=== PATIENT | male | born 1975 | race Caucasian/White ===

== ENCOUNTER → 2021-11-29 09:32 | Outpatient (CLI) | payer OTHER, SELFPAY ==
--- NOTE | ~2021-11-29 | XR_ITS ---
EXAMINATION:XR_CERV2-3V_CR DATE: 11/29/2021 10:33 INDICATION: Neck pain TECHNIQUE: AP, lateral, lateral swimmers and odontoid views of the cervical spine are provided. COMPARISON: None FINDINGS: Alignment is normal. The odontoid is intact. No fracture is identified. Vertebral body heig hts and disk spaces are normal. Prevertebral soft tissues are normal. IMPRESSION: 1. No acute osseous abnormality. Reviewed, dictated and finalized at location B.
--- NOTE | ~2021-11-29 | XR_ITS ---
EXAMINATION: XR lumbar spine 2-3V DATE: 11/29/2021 10:33 INDICATION: Low back pain TECHNIQUE: Anteroposterior and lateral views of the lumbar spine, and cone-down lateral view of the l umbosacral junction were obtained. COMPARISON: None. FINDINGS: There is no fracture, dislocation, or subluxation. There is mild loss of intervertebral dis c space height at L5-S1. The vertebral body heights are maintained. There is mild facet osteoarthriti s of the lower lumbar spine. IMPRESSION: 1. Mild lumbar spondylosis without acute findings. Reviewed, dictated and finalized at location B.
--- NOTE | ~2021-11-29 | XR_ITS ---
EXAMINATION: XR thoracic spine 2V DATE: 11/29/2021 10:33 INDICATION: Thoracic back pain TECHNIQUE: AP, lateral and lateral swimmer's views of the thoracic spine were obtained. COMPARISON: None. FINDINGS: There are 13 degrees of thoracic dextroscoliosis. Bone alignment is normal. There is no fra cture. The vertebral body heights and intervertebral disc spaces are maintained. The visualized porti ons of the thorax are unremarkable. IMPRESSION: 1. Thoracic dextroscoliosis without acute osseous abnormality. Reviewed, dictated and finalized at location B.
== END ==
PROVIDERS: PCP Internal Medicine; Visit Provider Chiropractor
DX: M54.50 Low back pain, unspecified (principal); M54.2 Cervicalgia; M47.816 Spondylosis without myelopathy or radiculopathy, lumbar region; M41.84 Other forms of scoliosis, thoracic region
CPT/HCPCS: 72040; 72070; 72100

== ENCOUNTER 2024-09-12 14:02 | Outpatient (CLI) | payer OTHER, SELFPAY ==
--- NOTE | ~2024-09-12 | CT_ITS ---
EXAMINATION: CT injection muscle 1-2 DATE: 09/12/2024 14:53 INDICATION: Strain and muscle and tendon of left shoulder. TECHNIQUE: The procedure including the risks, benefits, and alternatives was discussed with the patie nt. Risks discussed included bleeding and infection. The patient verbalized understanding of the risk s and agreed to proceed. The skin overlying the left shoulder was prepped and draped in usual steril e fashion. Anesthetic was administered with 1% lidocaine subcutaneously. A 22-gauge needle was inser marcie into the fluid collection anterior to the left subscapularis muscle under CT guidance. 2 mL pale yellow fluid was aspirated and discarded. Injectate consisting of 1 mL Omnipaque 350, 2 mL 1% lidocai ne, and 1 mL 80 mg/mL Depo-Medrol was injected. The dose-length product was 136.04 mGy-cm. The needle was removed and the entry site was cleaned and dressed. There were no immediate complications. FINDINGS: CT images demonstrate the outer needle tip in the fluid collection anterior to left subscap ularis muscle, likely the subcoracoid bursa. IMPRESSION: 1. CT-guided needle aspiration of the left subcoracoid bursa and injection of local anesthetic and s teroid. Reviewed, dictated and finalized at location A. ORT STAFF IMPRESSION: 1. CT-guided needle aspiration of the left subcoracoid bursa and injection of local anesthetic and steroid.
--- OUTSIDE RECORDS SUMMARY | 2024-09-12 16:40 | XMS_ITS | Clinical Summary ---
Author Organization [facility] Building A Address [address] [place] [address] Care Team Providers Care Heeler Name Role Phone Foster Mena MD Primary Care Provider Allergies No known active allergies Medications buPROPion XL (WELLBUTRIN XL) 150 mg 24 hr tablet Take 1 tablet (150 mg total) by mouth every morning 90 tablet 3 3 Active Additional Information Patient not taking.Reported on 03/09/2024 fexofenadine-pse udoephedrine (ABBE-D) 60-120 mg per 12 hr tablet Take 1 tablet by mouth 2 (two) times a day For drainage 14 tablet 3 3 Active Additional Information Patient not taking.Reported on 03/09/2024 celecoxib (CeleBREX) 200 mg capsule Take 1 capsule (200 mg total) by mouth daily For back pain 30 capsule 3 3 Active Additional Information Patient not taking.Reported on 03/09/2024 clobetasoL (TEMOVATE) 0.05 % ointment Apply topically 2 (two) times a day To rash 30 g 3 3 Active Additional Information Patient not taking.Reported on 03/09/2024 linaCLOtide (LINZESS) 290 mcg capsuleIndicatio ns:chronic idiopathic constipation Take 1 capsule (290 mcg total) by mouth daily 30 capsule 11 4 Active Additional Information Patient not taking.Reported on 03/09/2024 atorvastatin (LIPITOR) 20 mg tablet Take 1 tablet (20 mg total) by mouth daily To lower bad cholesterol 90 tablet 3 4 12/31/19 25 Active varenicline tartrate (CHANTIX GLORIA) 0.5 mg (11)- 1 mg (42) tablet USE DIRECTED FOLLOW PACKAGE DIRECTIONS, TRY TO QUIT SMOKING AFTER 1 WEEK 53 tablet 1 4 Active Active Problems Problem Noted Date Diagnosed Date Chronic midline low back pain without sciatica 0 09/26/2022 DDD (degenerative disc disease), lumbar 09/26/19 23 Lumbar facet arthropathy 09/25/2022 Encounter for screening colonoscopy 01/07/2022 Overview (01/07/2022): Added automatically from request for surgery [id number] Left sided sciatica 2021 Thoracogenic scoliosis 2021 History of 2019 novel coronavirus disease (COVID -19) 2021 Psoriasis 12/10/2013 Overview (10/31/2016): OTHER PSORIASIS Elevated LDL cholesterol level Tobacco abuse Resolved Problems Problem Noted Date Diagnosed Date Resolved Date Acute URI 04/26/2019 04/26/2019 Assessment & Plan (04/26/2019 3:03 PM CDT): Acute viral URI VS allergic etiology given presentation & rapid negative strep. Recommending daily antihistamine and Flonase, supportive measures OTC to assist with ST until medications effective. Throat culture obtained with further recommendations for antibiotics if indicated. Encounters Date Type Department Care Team Description 07/01/2024 12:31 PM SEED CLEANER Anesthesia Event [facility] [address] [place] [address] [phone] Kenton Savage MD McVey, Lynexis Parisann, CRNA 07/01/2024 12:30 PM SEED CLEANER - 07/01/2024 1:00 PM SEED CLEANER Surgery [facility] [address] [place] [address] [phone] Jefferson Marshall MD EGD w/Davis 07/01/2024 11:30 AM SEED CLEANER - 07/01/2024 1:37 PM SEED CLEANER Hospital Encounter [facility] [address] [place] [phone] Jefferson Marshall MD Discharge Disposition: Discharge to home or self care from Last 3 Months Immunizations Immunization Administration Dates Next Due Influenza, Quadrivalent, Spl it, Intramuscular 05/05/2016 Influenza, Quadrivalent, Spl it, Preservative Free, Intramuscular 06/06/2020 Influenza, Unspecified 10/25/2023(Deferr ed: Patient Refused),08/19/2022(Deferred: Patient Refused),04/26/2021(Deferred: Patient Refused),04/26/2021(Deferred: Patient Refused),04/26/2019(Deferred: Patient Refused),04/26/2019(Deferred: Patient Refused - not available),04/26/2018(Deferred: Patient Refused) Moderna SARS-CoV-2 Monovalen t Vaccination (12+ YRS) 10/30/2020 Tdap 06/06/2020 Medical History Medical History Date Comments Hx Other Medical 02/06/2011 vasectomy Hypercholesteremia Hiatal hernia Gastric reflux Family History Medical History Relation Name Comments Arthritis Father Heart disease Father Mental illness Father Arthritis Mother Heart disease Mother Relation Name Status Comments Father Mother Social History Tobacco Use Types Packs/Day Years Used Date Smoking Tobacco: Former Cigarettes Q uit: 04/05/2019 Smokeless Tobacco: Never Tobacco Cessation:Ready to Q uit: Not Asked; Counseling Given: Not Answered Alcohol Use Standard Drinks/Week Comments No 0 (1 standard drink = 0.6 oz pur e alcohol) AUDIT-C Answer Date Recorded Q1: How often do you have a drink containing alc ohol? 2-3 times a week 07/01/2024 Q2: How many drinks containi ng alcohol do you have on a typical day when you are drinking? 1 or 2 07/01/2024 Q3: How often do you have si x or more drinks on one occasion? Monthly 07/01/2024 PHQ-2 Answer Date Recorded PHQ-2 Total Score (If total score is 3 or more points, staff should administer the PHQ-9) 0 09/26/2022 Personal Safety Answer Date Recorded Have you ever been in or are you currently in a harmful physical or emotional relationship or is someone making you feel afraid or unsafe? Denies 07/01/2024 Sex and Gender Information Value Date Recorded Sex Assigned at Not on file Legal Sex Male 11:54 PM SEED CLEANER Gender Identity Not on file Sexual Orientation Not on file Obstetrics History Last Filed Vital Signs Vital Sign Reading Time Taken Comments Blood Pressure 110/78 07/01/2024 1:30 PM SEED CLEANER Pulse 59 07/01/2024 1:30 PM SEED CLEANER Temperature 36.2 C (97.1 F) 07/01/2024 11:59 AM SEED CLEANER Respiratory Rate 20 07/01/2024 1:30 PM SEED CLEANER Oxygen Saturation 96% 07/01/2024 1:30 PM SEED CLEANER Inhaled Oxygen Concentration - - Weight 79.4 kg (175 lb) 07/01/2024 11:59 AM SEED CLEANER Height 170.2 cm (5' 7 ) 07/01/2024 11:59 AM SEED CLEANER Body Mass Index 27.41 07/01/2024 11:59 AM SEED CLEANER Plan of Treatment Health Maintenance Due Date Last Done Comments Hepatitis C Screening 1975 Hepatitis B Screening 1992 Depression Screening 09/27/2023 09/26/2022, 09/26/2022, 08/19/2022, Additional history exists Covid-19 Vaccine ( season) 2024 11/27/2020, 10/30/2020 Influenza Vaccine (#1) 2024 06/06/2020, 2015 Regular Well Visit/Exam 18-64 12/30/2024 12/31/2023, 08/19/2022, 2021, Additional history exists DTaP/Tdap/Td Vaccine (2 - Td or Tdap) 06/06/2030 06/06/2020 Colon Cancer Screening-Colonoscopy 03/04/2032 03/04/2022 Pneumococcal vaccine <65 Aged Out No longer eligible based on patient's age to complete this topic Procedures Procedure Name Priority Date/Time Associated Diagnosis Comments EGD 07/10/2024 12:20 PM SEED CLEANER ESOPHAGOGASTRODUODENOSCOPY 07/01 12:31 PM SEED CLEANER Hiatal hernia COLONOSCOPY 03/04/2022 7:10 AM CDT from Last 3 Months or Most Recently Relevant to Health Maintenance Results * EGD (07/10/2024 12:20 PM SEED CLEANER) Anatomical Region Laterality Modality Other Narrative Procedure Note Jefferson Marshall MD - 07/01/2024 12:20 PM CST ENDOSCOPY LAB Patient Name: Jag Edwards Procedure Date: 07/01/2024 12:20 PM Admit Type: Outpatient Room: [facility] Date of : 1975 Instrument Name: [id number] Gender: Male Note Status: Finalized Procedure: Upper GI endoscopy Indications: Epigastric abdominal pain, Suspected esophagealreflux Providers: Jose Miguel Marshall M.D. Referring MD: Foster Mena M.D., Rodrigo Antonio M.D. Medicines: Monitored Anesthesia Care Complications: No immediate complications. Estimated Blood Loss: Estimated blood loss was minimal. Procedure: Pre-Anesthesia Assessment: - Immediately prior to administration ofmedications, the patient was re-assessed for adequacy to receive sedatives. The benefits, risks, and alternatives to theprocedure and sedation were discussed and informed consentwas obtained. The scope was passed under direct vision. The Endoscope was introduced through the mouth, and advanced to the second part of duodenum. The upperGI endoscopy was accomplished without difficulty. The patient tolerated the procedure well. Findings: Soft LA Grade B (one or more mucosal breaks greater than 5 mm, not extending between the tops of two mucosal folds) esophagitis with no bleeding was found 35 to 36 cm from the incisors. The DAVIS capsulewith delivery system was introduced through the mouth and advanced intothe esophagus, such that the DAVIS pH capsule was positioned 32 cm fromthe incisors, which was 6 cm proximal to the GE junction. Suction was applied to the well of the DAVIS pH capsule to suck in the adjacent mucosa of the esophagus using the external vacuum pump set at aminimum vacuum pressure of 550 mmHg for 30 seconds. The DAVIS pH capsule was then deployed by depressing the plunger on top of the handle toadvance the locking pin into the mucosa, thereby attaching the capsule to the esophagus. The plunger was then rotated a quarter turn clockwise to release the capsule from the delivery system. The delivery system was then withdrawn. Endoscopy was utilized for probe placement and diagnostic evaluation. The scope was reinserted to evaluate placementof the DAVIS capsule. Visualization showed the DAVIS capsule to be in an appropriate position. A 2 cm hiatal hernia was present. The stomach was normal. The examined duodenum was normal. Impression: - LA Grade B reflux esophagitis with no bleeding. 2cm hiatal hernia. - Normal stomach. - Normal examined duodenum. - The DAVIS pH capsule was positioned 32 cm fromthe incisors, which was 6 cm proximal to the GEjunction. - No specimens collected. Recommendation: - Await results of Davis pH testing. Acidsuppression can be resumed after the recording period iscomplete. Electronically signed by Jose Miguel aMrshall MD JoseM iguel Marshall M.D. 07/01/2024 12:46:14 PM Number of Addenda: 0 Note Initiated On: 07/01/2024 12:20 PM Scope In: Scope Out: us Jefferson Marshall MD ENDOSCOPY PROCEDURES Edited Result - Final * COLONOSCOPY (03/04/2022 7:10 AM CDT) Anatomical Region Laterality Modality Other Narrative Procedure Note Gokul Parson MD - 03/04/2022 7:10 AM CDT [facility] Patient Name: Jag Edwards Procedure Date: 03/04/2022 7:10 AM Date of : 1975 Admit Type: Outpatient Age: 46 Gender: Male Attending MD: Gokul Parson M.D. Room: [facility] ENDOSCOPY ROOM 2 Note Status: Finalized Patient Profile: Refer to note in patient chart for documentation of history and physical. Procedure: Colonoscopy Indications: Screening for colorectal malignant neoplasm, Thisis the patient's first colonoscopy Referring MD: Foster Mena M.D. Providers: Gokul Parson M.D. Impression: - Hemorrhoids found on perianal exam. - The entire examined colon is normal. - No specimens collected. Recommendation: - Discharge patient to home. - Resume previous diet. - Continue present medications. - Repeat colonoscopy in 10 years for screening purposes. - Return to primary care physician as previously scheduled. Medicines: Propofol per Anesthesia Complications: No immediate complications. Estimated Blood Loss: Estimated blood loss: none. Procedure: Pre-Anesthesia Assessment: - This assessment was completed [Time ofAssessment] prior to the administration of sedation. The benefits, risks and alternatives of theprocedure and sedation were discussed and informed consentwas obtained. All questions were answered. Please referto the signed informed consent document in the medical record. The bowel preparation used was Miralax via single dose instruction. The bowel preparation used was bisacodyl tablets via single dose instruction.The scope was passed under direct vision. TheColonoscope [id number] was introduced through the anus and advanced to the the cecum, identified by appendiceal orifice and ileocecal valve. The colonoscopy was performed without difficulty. The patient tolerated the procedure well. The qualityof the bowel preparation was excellent. The ileocecal valve, appendiceal orifice, and rectum were photographed. Findings: Hemorrhoids were found on perianal exam. The colon (entire examined portion) appeared normal. Electronically signed by Gokul Parson M.D. Gokul Parson M.D. 03/04/2022 8:15:47 AM Number of Addenda: 0 Note Initiated On: 03/04/2022 7:10 AM Procedure Code(s): --- Professional --- G0121, Colorectal cancer screening; colonoscopy on individual not meeting criteria for high risk Diagnosis Code(s): --- Professional --- K64.9, Unspecified hemorrhoids Z12.11, Encounter for screening for malignant neoplasm of colon CPT copyright 2020 [employer]. All rights reserved. The codes documented in this report are preliminary and upon accounting manager assistant controller reviewmay be revised to meet current compliance requirements. Recognized by the [employer] for promoting quality in endoscopy us Gokul Parson MD ENDOSCOPY PROCEDURES Final Re sult from Last 3 Months or Most Recently Relevant to Health Maintenance Insurance [employer] IBEW CIGNA OPEN ACCESS CIGNA Advance Directives For more information, please contact: [phone] * Full Code (Latest Code Status on File) Date Activated Date Inactivated Comments 07/01/2024 11:46 AM 07/01/2024 5:37 PM * Full Code Date Activated Date Inactivated Comments 03/04/2022 7:05 AM 03/04/2022 1:05 PM * Full Code Date Activated Date Inactivated Comments 03/04/2022 7:05 AM 03/04/2022 7:05 AM Care Teams Heeler Relationship Specialty Start Date End Date Foster Mena MD PCP - General 10/24/16
--- OUTSIDE RECORDS SUMMARY | 2024-09-12 16:40 | XMS_ITS | Data Portability ---
Author Organization [facility], Medical Address [address] [place] [address] Care Team Providers Care Numerical Control Machine Machinist Name Role Phone GIACOMO CHAND Primary Care Provider [phone] Assessment Encounter Date Assessment Date Assessment LastModified by Organization Details LastModified Time 11/24/2018 11/24/2018 1. abdominal bloating - rec nutrition consult -ELIMINATION DIET - rec [facility] WELLNESS probiotic supplement 2. elevated cholesterol on prior labs - discussed [facility] 3 elevated a1c- check labs including insulin and a1c- disucssed [facility] 4. chronic upper airway congestion - evaluate after elimination diet 5. vitaimin d def on prior labs -24.1 -=start replacement - recheck fu labs at next fu 6. discussed importance of smoking cessation 7 discussed adding stretching program to his exercise routine 8. disucssed dementia prevention protocols -given family history 9. discussed eye check -routine 10. vaccination and general preventive care protocols Time in:15 Time out:1045 TOTAL TIME SPENT WITH PATIENT: *90minutes I spent greater than 90 minutes discussing history, impressions, and plan: including time counseling on stress reduction, exercise, diet, lifestyle modifications, and a plan of action to help eliminate the underlying conditions leading to illness and reach their well-being goals as outlined in my assessment, plan, and instructions. [email or web address] Not available 12/13/2018 12:24:15 Plan of Treatment Reminders Order Date Submit Date Provider Last Modified By Organization Details Last Modified Time Details Appointments None recorded. Lab vitamin D, 25-hydrox y, total, serum [facility], [address] [facility], [place], [address], 9 15:36:29 HbA1c (hemoglob in A1c), blood 01/2 019 [facility], [address] [place], [address], 9 11:54:41 CMP, serum or plasma 019 [facility], [address] [place], [address], 9 11:54:43 insulin, serum 019 [facility], [address] [facility], [place], [address], 9 11:54:39 lipid panel, serum 019 [facility], [address] [facility], [place], [address], 9 11:54:40 Referral None recorded. Procedures None recorded. Surgeries None recorded. Imaging None recorded. Medication Orders None recorded. Patient Targets Encounter Date Encounter Id Patient Goals Patient Target Last Modified By Organization Details Last Modified Time 1.reduce congestion2. reduce bloating3. work on elevated cholesterol4. 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 probiotic - discussed PALM vs Gi wellness -total digestive wellnesss 3. vit d replacement -5000 bid for 1 month then qd 4. labs - ?[facility] -please discuss with patient -?cost --vs [facility] 5. RTC 4-6 weeks. [email or web address] Not available 11/24/2018 11:23:48 Reason for Referral None Reported. Results Created Date Observation Date Name Description Value Unit Range Abnormal Flag Note LastModifiedBy Organization Detail LastModifiedTime Result Notes None recorded. Problems Name Problem SNOMED Code Status Onset Date Resolution Date Notes Provider Name and Address Organization Details Recorded Time Serum cholesterol outside reference range 5345130270221 4 Active 2018 LUC Campbell - [employer] 9 12:56:11 Impaired glucose tolerance 0995193 Active 2018 Samuel Hiro jennifer [facility] 9 12:56:21 Problem Notes None recorded. Medical Equipment None Reported. Allergies No known drug allergies Medications Not known to be on any medication Vitals Date Recorded Body weight Body temperature Heart rate Oxygen saturation Oxygen saturation in Arterial blood by Pulse oximetry Body mass index (BMI) Body height Systolic blood pressure Diastolic blood pressure Provider Name and Address Organization Details Last Updated DateTime 9 11666.2 3 g 98.2 [degF] 59 /min 98 % 98 % 26.2 kg/m2 173.99 cm 121 mm[Hg] 76 mm[Hg] Amairani Bowser [facility] 9 09:39:50 Social History Question Answer Notes LastModified by Organizat ion Details LastModified Time Tobacco Smoking Status Former Smoker Manda rodriguez [facility] 11/16/2018 11:02:59 What Is Your Level Of Alcohol Consumption? Moderate [email or web address] Information not available 11/16/2018 Animal Exposure? Yes [email or web address] Informa tion not available 11/16/2018 How Much Tobacco Do You Chew? 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 No [email or web address] Information no t available 11/16/2018 Hobbies/Activitie s Wood Work, Hiking, Golf nwcriuxzb66 Information not available 11/16/2018 International Travel [facility], [facility] [place] [email or web address] Information not available 11/16/2018 Where Do You Live? House [email or web address] Information not available 11/16/2018 With Whom Do You Live And Children Information not available 11/16/2018 Individuals Around You Are Supportive Information not available 11/16/2018 Week Days I Spend Mostly Working Within 60 Min From Home [email or web address] Information not available 11/16/2018 Weekends I Spend Mostly Working From Home [email or web address] Information not available 11/16/2018 Time Lost From Work This Year Due To Illness 0-2 Days [email or web address] Information not available 11/16/2018 Relaxation Methods Sauna gjnlybzsd89 Information not available 11/16/2018 Living Adjustments Due To Health Trying To Eat A Better Diet, Exercise, And Saun xtqodxfqz81 Information not available 11/16/2018 Major Loses No bufujotml79 Information not available 11/16/2018 Judaism Not At All bcfuxeksp27 Information n ot available 11/16/2018 Spirituality Not At All dfaflwvxf75 Information not available 11/16/2018 Feel Safe Growing Up Yes [email or web address] Information not available 11/16/2018 Abusive Relationship In Past No lpshlfokh86 Information not available 11/16/2018 Alcoholism Or Substance Abuse In Childhood Home No [email or web address] Information no t available 11/16/2018 Alcoholism Or Substance Abuse In Current Home Or Relationship No istybknpt86 Information not available 11/16/2018 Feel Safe In Current Home Yes [email or web address] Information not available 11/16/2018 Feel Safe, Respected, And Valued In Current Relationship Yes [email or web address] Information not available 11/16/2018 Violent Or Trauma Experiences No avcwoqjpa63 Information not available 11/16/2018 Safety Discussion In Private No Information not available 11/16/2018 Alcohol Intake Quantity 1-3 Drinks Per Week xqrgocxxh84 Information not available 11/16/2018 Alcohol Intake Variety Beer [email or web address] Information not available 11/16/2018 Do You Think You Have A Problem With Alcohol No [email or web address] Information not available 11/16/2018 Does Anyone In Your Life Think You Have A Problem With Alcohol No ekdmncdjw80 Information not available 11/16/2018 Recreational Drugs No [email or web address] Information not available 11/16/2018 Current Employment Status Working Full-time [email or web address] Information not available 11/16/2018 Stress Level (10 Most, 1 Least) 7 ntnhuqcoh58 Information not available 11/16/2018 Unhealthy Stress Is Present No mhihvmwjg26 Information not available 11/16/2018 Ways To Release Stress Take A Break qfnkogksp93 Information not available 11/16/2018 Sources Of Stress Are Work And Running Kids To Activities atuqkcqlk64 Information not available 11/16/2018 Exposures Cigarette Smoke, Auto Exhaust, Heavy Metals, Welding, Extreme Temperatures, Heights And Depths pjjjqinum90 Information not available 11/16/2018 What Was The Date Of Your Most Recent Tobacco Screening? 11/24/2018 Information not available 02/17/2019 How Many Children Do You Have? 2 elgcrxavp35 Information not available 11/16/2018 Do You Have Any Siblings? 2 Sisters And 1 Brother wdnikevpi48 Information not available 11/16/2018 Are There Any Smokers In Your House? No ozjgbdjsx52 Information not available 11/16/2018 How Much Tobacco Do You Smoke? No koqrzoywx77 Information not available 11/16/2018 How Many Years Have You Smoked Tobacco? 30 ivwupigls68 Information not available 11/16/2018 Sex: Unknown Functional Status None recorded. Mental Status None recorded. Family History Relationship Description Onset Age of this Age Resolved Age Notes LastModified by Organization Details LastModified Time Maternal Grandmother Dementia [email or web address] Not available 0 11/16/2018 10:57:50 Maternal Grandfather Dementia [email or web address] Not available 0 11/16/2018 10:57:50 Maternal Grandfather Depressive disorder [email or web address] Not available 10/26 10:58:12 Maternal Grandfather Heart disease [email or web address] Not available 10/26 10:58:32 Paternal Grandfather Dementia Not available 0 11/16/2018 10:57:50 Mother Heart disease Not available 10/26 10:58:42 Mother Obesity [email or web address] Not availab le 11/16/2018 10:59:13 Brother Mental disorder [email or web address] Not available 10/26 10:59:00 Brother Substance abuse auwlxghpm24 Not available 10/26 10:59:23 Sister Mental disorder [email or web address] Not available 10/26 10:59:00 Medical History Condition Response Coronary Artery Disease N Other N Gout N High Blood Pressure Y Kidney Stones N Hyperthyroidism N MRSA N Gerd/Reflux N Chronic Sinusitis N INJURIES N Braces N Depression N Congenital Heart Disease N Pneumonia N BLOOD/INFLAMMATORY/IMMUNE N Complex Regional Pain Syndrome N Headache/Migraine N Sinusitis N RESPIRATORY N Gall stones N Bulimia N Obesity N Arthritis N Infertility N Polycystic Ovarian Syndrome N Congenital Disorder N Stroke N Crohn's Disease N Neck Injury N HIV/AIDS N CARDIOVASCULAR N Skin Cancer N Mood disorder N Fibromyalgia N Irritable Bowel Syndrome N Kidney Disease N Concussion/Traumatic Brain Injury N Inflammatory bowel disease N Chronic Fatigue Syndrome N Anxiety N Hospitalizations N Irregular HR/Arrhythmia N Heart Attack/KS N Herpes N GASTROINTESTINAL N Acne N PTSD N Celiac Disease N Constipation N Bleeding Disorder N Hepatitis/Liver Disease N Broken bone N Cerebral Palsy N Tuberculosis N METABOLIC/ENDOCRINE N Asthma N Dental Visits 2x/year Y Silver/Mercury Amalgum fillings N Chronic Ear Infections N Bipolar disorder N Oral Steroids as Adult N MENTAL HEALTH N URINARY/REPRODUCTIVE N Hypothyroidism N Anorexia N Developmental delay N Pacemaker N DERMATOLOGIC N Panic attacks N Gastic or peptic ulcers N Food intolerance N Yeast infections N Prostate problem N Mononucleosis N Chronic pain Y Hypoglycemia N Severe infections N ORAL HEALTH N Metabolic syndrome N Back Injury N High Cholesterol Y Antibiotic Use as Teen N CANCER N Autism/Autism Spectrum Disorder (ASD) N Type 1 Diabetes N Autoimmune Disease N Allergies/Hayfever N Recurrent Fractures N Head Injury N Osteoarthritis N Rheumatic fever N NEUROLOGIC N Parkinson's Disease N Oral Steroids as Teen N ADD/ADHD N Anemia N Back Pain Y Multiple Sclerosis N Type 2 Diabetes N Bronchitis/Emphysema N Dentures N Retainer N Cardiomyopathy N Seizures/Epilepsy N Heart Murmur N Congestive Heart Failure (CHF) N Valvular Heart Disease N Cancer and treatments N MUSCULOSKELETAL/PAIN N Eczema N Dementia N Urinary tract infections N Ulcerative colitis N Lupus N Connective Tissue Disorder N Learning Disorder/Difficulty N Antibiotic Use as Adult N Blood Clotting Disorder N Psoriasis Y Sleep Apnea N Oral Steroids as /Child N Antibiotic Use in Infancy/Childhood N Osteoporosis N Past Encounters Encounter ID Performer Location Encounter Start Date Encounter Closed Date Diagnosis/Indication Diagnosis SNOMED-CT Code Diagnosis ICD10 Code Diagnosis Note [id number] [facility] [address] [place] [address] 11/24/2018 09:10:25 11/24/2018 14:49:40 Impaired glucose tolerance 0116905 R73.09 Serum chol esterol outside reference range 9626816940 9104 R79.89 Vitamin D deficiency 347 97432 E55.9 Health Concerns Section Related Observation LastModified by Organization Detai ls LastModified Time None Recorded Concern Status LastModified by Organization Details LastModified Time None Recorded Advance Directives Directive None Recorded Payers Encounter Date Sequence Insurance Name Policy Number Policy Harrisno Covered Member ID Harirson Member ID Guarantor Name 11/24/2018 1 [facility] (POS II) Jag Edwards [id number] Jag Edwards Notes Date Note Type Note Provider Name and Address Organization Details Recorded Time 9 text/htm l functional medicine evaluation -1. hx of abdominal bloating- starting 2016- 2yrs everyday - bm- sl constipated -GI EGD ess normal -travel some - no illness -no observed relationship with sx /food other than beans2. chronic upper airway congestion - ENT eval about 2 yrs ago- neg nasolaryngoscopy -ugi_?reflux -prilosec not helpful-no hx of asthma :does smoke3. 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) -prior smoker -saunaassimilation - abd bloatingdefense/repair- psoriasisenergy- no findingsstructure- occ low back paintransport -elevated chol -ldl/tg PLM:sleep/relaxation - sleeps well - energy levels acceptable - working on relaxation -exercise - active work - runs 2-3 day per week - gym 1-2 weeknutrition -working with to make significant diet changes - working on Time restricted feeding - did not kehinde intermittant fasting due to work schedule -working on time restricted feeding -working primarily on reducing sugarsstress - minimal - occ work /familyrelationships - supportive - /marriage - kids good - grew up christianity -does not practice but ascribes to being spiritualdiscussed smoking cessation -on /off- alcohol 2-3 per week with occ binge time line plotted -as scanned3 siblings with mental health issuesvaginal delivery with mix of breast/bottle feeding - no / issues reportedno unusual illnesses or excessive abx exposuresome vacation related travel but no illnesses or change in sx with travel fh several grand parents with dementia LUC Campbell [facility] 12/14/2018 16:12:57
--- OUTSIDE RECORDS SUMMARY | 2024-09-12 16:40 | XMS_ITS | Referral Summary ---
Author Organization [facility] Medical Office Building A Address [address] [place] [address] Care Team Providers Care Podiatry Teacher Name Role Phone Foster Mena MD Primary Care Provider Encounters Date Type Department Care Team Description 07/01/2024 12:31 PM ANIMAL HERDER Anesthesia Event [facility] [address] [place] [phone] Kenton Savage MD McVey, Lynexis Parisann, CRNA 07/01/2024 12:30 PM ANIMAL HERDER - 07/01/2024 1:00 PM ANIMAL HERDER Surgery [facility] [address] [place] [phone] Jefferson Marshall MD EGD w/Davis 07/01/2024 11:30 AM ANIMAL HERDER - 07/01/2024 1:37 PM ANIMAL HERDER Hospital Encounter [facility] [address] [place] [phone] Jefferson Marshall MD Discharge Disposition: Discharge to home or self care from Last 3 Months Allergies No known active allergies Medications buPROPion [...] (01/07/2022): Added automatically from request for surgery [id number] Left sided sciatica 2021 Thoracogenic scoliosis 2021 [...] with further recommendations for antibiotics if indicated. Immunizations Immunization Administration Dates Next Due Influenza, Quadrivalent, Spl it, Intramuscular 05/05/2016 Influenza, Quadrivalent, Spl it, Preservative Free, Intramuscular 06/06/2020 Influenza, Unspecified 10/25/2023(Deferr ed: Patient Refused),08/19/2022(Deferred: Patient Refused),04/26/2021(Deferred: Patient Refused),04/26/2021(Deferred: Patient Refused),04/26/2019(Deferred: Patient Refused),04/26/2019(Deferred: Patient Refused - not available),04/26/2018(Deferred: Patient Refused) Moderna SARS-CoV-2 Monovalen t Vaccination (12+ YRS) 10/30/2020 Tdap 06/06/2020 Social History Tobacco Use Types Packs/Day Years [...] on file Legal Sex Male 11:54 PM ANIMAL HERDER Gender Identity Not on file Sexual Orientation Not on file Last Filed Vital Signs Vital Sign Reading Time Taken Comments Blood Pressure 110/78 07/01/2024 1:30 PM ANIMAL HERDER Pulse 59 07/01/2024 1:30 PM ANIMAL HERDER Temperature 36.2 C (97.1 F) 07/01/2024 11:59 AM ANIMAL HERDER Respiratory Rate 20 07/01/2024 1:30 PM ANIMAL HERDER Oxygen Saturation 96% 07/01/2024 1:30 PM ANIMAL HERDER Inhaled Oxygen Concentration - - Weight 79.4 kg (175 lb) 07/01/2024 11:59 AM ANIMAL HERDER Height 170.2 cm (5' 7 ) 07/01/2024 11:59 AM ANIMAL HERDER Body Mass Index 27.41 07/01/2024 11:59 AM ANIMAL HERDER Plan of Treatment Not on file Procedures Procedure Name Priority Date/Time Associated Diagnosis Comments EGD 07/10/2024 12:20 PM ANIMAL HERDER ESOPHAGOGASTRODUODENOSCOPY 07/01 12:31 PM ANIMAL HERDER Hiatal hernia COLONOSCOPY 03/04/2022 7:10 AM CDT from Last 3 Months or Most Recently Relevant to Health Maintenance Results * EGD (07/10/2024 12:20 PM ANIMAL HERDER) Anatomical Region Laterality Modality Other Narrative Procedure Note Jefferson Marshall MD - 07/01/2024 12:20 PM [facility] ENDOSCOPY LAB Patient Name: Jag Edwards Procedure Date: 07/01/2024 12:20 PM Admit Type: Outpatient Room: [facility] 4 Date of : 1975 Instrument Name: [id number] [...] period iscomplete. Electronically signed by Jose Miguel Marshall MD Jose Miguel Marshall M.D. 07/01/2024 12:46:14 PM Number of Addenda: 0 Note Initiated On: 07/01/2024 12:20 PM Scope In: Scope Out: Jefferson Marshall MD ENDOSCOPY PROCEDURES Edited Result - Final * COLONOSCOPY (03/04/2022 7:10 AM CDT) Anatomical Region Laterality Modality Other Narrative Procedure Note Gokul Parson MD - 03/04/2022 7:10 AM CDT [facility] Patient Name: Jag Edwards Procedure Date: 03/04/2022 7:10 AM Date of : 1975 Admit Type: Outpatient Age: 46 Gender: Male Attending MD: Gokul Parson M.D. Room: [facility] ENDOSCOPY RO[facility] 2 Note Status: Finalized Patient [...] scope was passed under direct vision. TheColonoscope [id number] was introduced through the anus and advanced [...] malignant neoplasm of colon CPT copyright 2020 [employer]. All rights reserved. The codes documented in this report are preliminary and upon retail key holder reviewmay be revised to meet current compliance requirements. Recognized by the [employer] for promoting quality in endoscopy Gokul Parson MD ENDOSCOPY PROCEDURES Final Re sult from Last 3 Months or Most Recently Relevant to Health [place] [address] [place] [address] [employer] OPEN ACCESS C[employer] Advance Directives For more information, please contact: [phone] * Full Code (Latest Code Status on File) Date Activated Date Inactivated Comments 07/01/2024 11:46 AM 07/01/2024 5:37 PM * Full Code Date Activated Date Inactivated Comments 03/04/2022 7:05 AM 03/04/2022 1:05 PM * Full Code Date Activated Date Inactivated Comments 03/04/2022 7:05 AM 03/04/2022 7:05 AM Care Teams Podiatry Teacher Relationship Specialty Start Date End Date Foster Mena MD PCP - General 10/24/16
== END 2024-09-12 14:03 | disposition home or self-care (01) ==
PROVIDERS: PCP Orthopaedic Surgery; Visit Provider Orthopaedic Surgery
DX: S46.012A Strain of muscle(s) and tendon(s) of the rotator cuff of left shoulder, initial encounter (principal); X58.XXXA Exposure to other specified factors, initial encounter
CPT/HCPCS: 20552; J1010; J2003; Q9967

== ENCOUNTER 2025-02-25 08:38 | Emergency (ER) | payer OTHER, SELFPAY ==
--- NOTE | ~2025-02-25 | XR_ITS ---
EXAMINATION: [id number] DATE: 02/25/2025 09:05 INDICATION: Posterior lateral right rib pain post fall TECHNIQUE: A frontal inspiratory view of the chest and 3 views of the right ribs were obtained. COMPARISON: None FINDINGS: Mildly displaced posterior right ninth rib fracture. No pneumothorax. No focal infiltrates, pleural e ffusion or pulmonary edema. Cardiomediastinal silhouette is normal. IMPRESSION: 1. Mildly displaced posterior right ninth rib fracture with no acute cardiopulmonary disease. Reviewed, dictated and finalized at location A. IMPRESSION: 1. Mildly displaced posterior right ninth rib fracture with no acute cardiopulm onary disease.
[2025-02-25 08:39] VITALS: BP 132/83; PULSE 70; RESP 16; TEMP 36.4; O2SAT 100
--- OUTSIDE RECORDS SUMMARY | 2025-02-25 08:40 | XMS_ITS | Clinical Summary ---
Author Organization [facility] Building A Address [address] [place] [address] Care Team Providers Care Manufacturing Machine Operator Name Role Phone Foster Mena MD Primary [...] lower bad cholesterol 90 tablet 3 4 Active varenicline tartrate (CHANTIX GLORIA) 0.5 mg [...] (01/07/2022): Added automatically from request for surgery [id number] Left sided sciatica 2021 Thoracogenic scoliosis 2021 [...] it, Preservative Free, Intramuscular 06/06/2020 Influenza, Unspecified 01/02/2025(Deferr ed: Patient Refused),10/25/2023(Deferred: Patient Refused),08/19/2022(Deferred: Patient Refused),04/26/2021(Deferred: Patient Refused),04/26/2021(Deferred: Patient Refused),04/26/2019(Deferred: Patient Refused),04/26/2019(Deferred: Patient Refused - not available),04/26/2018(Deferred: Patient Refused) [place] SARS-CoV-2 Monovalen t Vaccination (12+ YRS) 10/30/2020 [...] on file Legal Sex Male 11:54 PM SEISMOGRAPH SUPERVISOR Gender Identity Not on file Sexual Orientation Not on file Obstetrics History Last Filed Vital Signs Vital Sign Reading Time Taken Comments Blood Pressure 110/78 07/01/2024 1:30 PM SEISMOGRAPH SUPERVISOR Pulse 59 07/01/2024 1:30 PM SEISMOGRAPH SUPERVISOR Temperature 36.2 C (97.1 F) 07/01/2024 11:59 AM SEISMOGRAPH SUPERVISOR Respiratory Rate 20 07/01/2024 1:30 PM SEISMOGRAPH SUPERVISOR Oxygen Saturation 96% 07/01/2024 1:30 PM SEISMOGRAPH SUPERVISOR Inhaled Oxygen Concentration - - Weight 79.4 kg (175 lb) 07/01/2024 11:59 AM SEISMOGRAPH SUPERVISOR Height 170.2 cm (5' 7) 07/01/2024 11:59 AM SEISMOGRAPH SUPERVISOR Body Mass Index 27.41 07/01/2024 11:59 AM SEISMOGRAPH SUPERVISOR Plan of Treatment Health Maintenance Due Date Last Done Comments Hepatitis C Screening 1975 Prostate Cancer Screening-PSA 1974 Hepatitis B Screening 1992 Depression Screening 09/27/2023 09/26/2022, 09/26/2022, 08/19/2022, Additional history exists Covid-19 Vaccine ( season) 2024 11/27/2020, 10/30/2020 Zoster Vaccine (1 of 2) 2024 Regular Well Visit/Exam 18-64 12/30/2024 12/31/2023, 08/19/2022, 2021, Additional history exists Influenza Vaccine (#1) 2025 06/06/2020, 2015 DTaP/Tdap/Td Vaccine (2 - Td or Tdap) 06/06/2030 06/06/2020 Colon Cancer Screening-Colonoscopy 03/04/2032 03/04/2022 Pneumococcal vaccine <65 Aged Out No longer eligible based on patient's age to complete this topic Procedures Procedure Name Priority Date/Time Associated Diagnosis Comments COLONOSCOPY 03/04/2022 7:10 AM CDT from Last 3 Months or Most Recently Relevant to Health Maintenance Results * COLONOSCOPY (03/04/2022 7:10 AM CDT) Anatomical Region Laterality Modality Other Narrative Procedure Note Gokul Parson MD - 03/04/2022 7:10 AM CDT [facility] Patient Name: Jag dEwards Procedure Date: 03/04/2022 7:10 AM Date of : 1975 Admit Type: Outpatient Age: 46 Gender: Male Attending MD: Gokul Parson M.D. Room: [facility]COPY ROOM 2 Note Status: Finalized Patient [...] scope was passed under direct vision. TheColonoscope [id number] was introduced through the anus and advanced [...] malignant neoplasm of colon CPT copyright 2020 [employer]. All rights reserved. The codes documented in this report are preliminary and upon orthopedic coder reviewmay be revised to meet current compliance requirements. Recognized by the [employer] for promoting quality in endoscopy Gokul Parson MD ENDOSCOPY PROCEDURES Final Re sult from Last 3 Months or Most Recently Relevant to Health Maintenance [place] [address] [employer] Advance Directives For more information, please contact: [phone] * Full Code (Latest Code Status on File) Date Activated Date Inactivated Comments 07/01/2024 11:46 AM 07/01/2024 5:37 PM * Full Code Date Activated Date Inactivated Comments 03/04/2022 7:05 AM 03/04/2022 1:05 PM * Full Code Date Activated Date Inactivated Comments 03/04/2022 7:05 AM 03/04/2022 7:05 AM Care Teams Manufacturing Machine Operator Relationship Specialty Start Date End Date Foster Mena MD PCP - General 10/24/16
--- OUTSIDE RECORDS SUMMARY | 2025-02-25 08:40 | XMS_ITS | Referral Summary ---
Author Organization [facility] Building A Address [address] [place] [address] Care Team Providers Care Drafter Refrigeration Name Role Phone Foster Mena MD Primary [...] (01/07/2022): Added automatically from request for surgery [id number] Left sided sciatica 2021 Thoracogenic scoliosis 2021 [...] on file Legal Sex Male 11:54 PM AREA DEVELOPMENT MANAGER Gender Identity Not on file Sexual Orientation Not on file Last Filed Vital Signs Vital Sign Reading Time Taken Comments Blood Pressure 110/78 07/01/2024 1:30 PM AREA DEVELOPMENT MANAGER Pulse 59 07/01/2024 1:30 PM AREA DEVELOPMENT MANAGER Temperature 36.2 C (97.1 F) 07/01/2024 11:59 AM AREA DEVELOPMENT MANAGER Respiratory Rate 20 07/01/2024 1:30 PM AREA DEVELOPMENT MANAGER Oxygen Saturation 96% 07/01/2024 1:30 PM AREA DEVELOPMENT MANAGER Inhaled Oxygen Concentration - - Weight 79.4 kg (175 lb) 07/01/2024 11:59 AM AREA DEVELOPMENT MANAGER Height 170.2 cm (5' 7) 07/01/2024 11:59 AM AREA DEVELOPMENT MANAGER Body Mass Index 27.41 07/01/2024 11:59 AM AREA DEVELOPMENT MANAGER Plan of Treatment Not on file Procedures Procedure Name Priority Date/Time Associated Diagnosis Comments COLONOSCOPY 03/04/2022 7:10 AM CDT from Last 3 Months or Most Recently Relevant to Health Maintenance Results * COLONOSCOPY (03/04/2022 7:10 AM CDT) Anatomical Region Laterality Modality Other Narrative Procedure Note Gokul Parson MD - 03/04/2022 7:10 AM CDT [facility] Patient Name: Jag Edwards Procedure Date: 03/04/2022 7:10 AM Date of : 1975 Admit Type: Outpatient Age: 46 Gender: Male Attending MD: Gokul Parson M.D. Room: [facility] ENDOSCOPY ROOM 2 Note Status: Finalized Patient [...] scope was passed under direct vision. TheColonoscope [id number] was introduced through the anus and advanced [...] malignant neoplasm of colon CPT copyright 2020 [employer]. All rights reserved. The codes documented in this report are preliminary and upon data coder operator reviewmay be revised to meet current compliance requirements. Recognized by the [employer] for promoting quality in endoscopy Gokul Parson MD ENDOSCOPY PROCEDURES Final Re sult from Last 3 Months or Most Recently Relevant to [place] [address] [employer] [place] Advance Directives For more information, please contact: [phone] * Full Code (Latest Code Status on File) Date Activated Date Inactivated Comments 07/01/2024 11:46 AM 07/01/2024 5:37 PM * Full Code Date Activated Date Inactivated Comments 03/04/2022 7:05 AM 03/04/2022 1:05 PM * Full Code Date Activated Date Inactivated Comments 03/04/2022 7:05 AM 03/04/2022 7:05 AM Care Teams Drafter Refrigeration Relationship Specialty Start Date End Date Foster Mena MD PCP - General 10/24/16
--- NOTE | 2025-02-25 08:58 | ED.GENADULT ---
HPI - General Adult General Chief complaint: Back Pain/Injury Stated complaint: Injury To Right Side Source: patient Mode of arrival: ambulatory Limitations: no limitations History of Present Illness HPI narrative: Pt presents for evaluation of right sided rib pain. He states he was in [place] on Thursday of this week and slipped on a concrete floor. He fell and hit his back against the ground. He did not hit his head. No LOC. He is not on blood thinners. He is now experiencing pain in right posterior and anterior ribs. He states at rest his pain is manageable but becomes excruciating when movement, sneezing and coughing. He took ibuprofen for his pain. He does not smoke or vape. Related Data Allergies Allergy/AdvReac Type Severity Reaction Status Date / Time No Known Allergies Allergy Unverified 02/03/25 07:07 Review of Systems Review of Systems: CONSTITUTIONAL: Denies fever, chills, or sweats. EYES: Denies visual changes, redness, or discharge. ENT: Denies rhinorrhea, congestion, sore throat, or otalgia. CARDIOVASCULAR: Denies chest pain, palpitations, or edema. RESPIRATORY: Denies cough or dyspnea. GASTROINTESTINAL: Denies abdominal pain, nausea, vomiting, or diarrhea. GENITOURINARY: Denies dysuria or hematuria. SKIN: Denies rash or itching. MUSCULOSKELETAL: Reports pain in right posterior and anterior ribs NEUROLOGIC: Denies headache, numbness, dizziness, or weakness. PSYCHIATRIC: Denies anxiety or depression. [facility] Past Medical History Medical History No pertinent past medical history Surgical History Surgical History No pertinent past surgical history Family History Family History Mother Heart disease Diabetes mellitus Social History Social History Smoking status: Never smoker Alcohol intake: current Substance use: never Do You Feel Safe in your Home?: Yes Lack of Transportation: No Lack of Food: Never True Current Housing: I Have Housing Concerned About Future Housing: No Difficulty Paying Gas/Electric Bills: No Difficulty Paying for Meds: No Currently Unemployed: No Education: Trade/Vocational Certificate Difficulty w/ Childcare or Family Care: No Gender identity (if verbalized by the patient): Male Spiritual care concerns: No Exam Narrative: GENERAL: Well-appearing, well-nourished, and in no acute distress. HEAD: Normocephalic, atraumatic. EYES: PERRLA and EOMI. ENT: Nares clear, no rhinorrhea or epistaxis. Mucous membranes moist. Oropharynx without tonsillar hypertrophy exudate or other lesions. Bilateral TMs pearly borjas nonbulging NECK: Supple. No adenopathy or masses. No carotid bruits or JVD CHEST: Clear to auscultation. No respiratory distress. No wheezes rales or rhonchi HEART: Regular rate and rhythm. No murmur heard. Normal peripheral pulses. ABDOMEN: Soft, nontender, nondistended, normal active bowel sounds. BACK: There is mild tenderness over right posterior ribs EXTREMITIES: Normal range of motion. No edema. SKIN: Warm, dry, no rash. NEURO: No focal deficits. Alert and oriented x3. PSYCH: Normal mood and affect. Course Course Emergency Course: This is a 49 year old male who presented for evaluation of a rib injury. X ray showed right posterior ninth rib fracture. Provided with incentive spirometer. Will dc with hydrocodone. Provided with paper script as it would not send electronically. Advised on pulmonary toilet. Follow up with primary care. Go to the ER for worsening symptoms. Pt in agreement with plan of care. Level of Care: Express Care Visit Vital Signs Vital signs: Vital Signs Temperature 36.4 C 02/25/25 08:39 Pulse Rate 70 02/25/25 08:39 Respiratory Rate 16 02/25/25 08:39 Blood Pressure 132/83 02/25/25 08:39 Pulse Oximetry 100 02/25/25 08:39 Oxygen Delivery Room Air 02/25/25 08:39 Temperature 36.4 C 02/25/25 08:39 Pulse Rate 70 02/25/25 08:39 Respiratory Rate 16 02/25/25 08:39 Blood Pressure 132/83 02/25/25 08:39 Pulse Oximetry 100 02/25/25 08:39 Oxygen Delivery Room Air 02/25/25 08:39 Medical Decision Making Vital Signs Vital Signs: Vital Signs Temperature 36.4 C 02/25/25 08:39 Pulse Rate 70 02/25/25 08:39 Respiratory Rate 16 02/25/25 08:39 Blood Pressure 132/83 02/25/25 08:39 Pulse Oximetry 100 02/25/25 08:39 Oxygen Delivery Room Air 02/25/25 08:39 Temperature 36.4 C 02/25/25 08:39 Pulse Rate 70 02/25/25 08:39 Respiratory Rate 16 02/25/25 08:39 Blood Pressure 132/83 02/25/25 08:39 Pulse Oximetry 100 02/25/25 08:39 Oxygen Delivery Room Air 02/25/25 08:39 Imaging Data Radiologist's impression: EXAMINATION: [id number] DATE: 02/25/2025 09:05 INDICATION: Posterior lateral right rib pain post fall TECHNIQUE: A frontal inspiratory view of the chest and 3 views of the right ribs were obtained. COMPARISON: None FINDINGS: Mildly displaced posterior right ninth rib fracture. No pneumothorax. No focal infiltrates, pleural effusion or pulmonary edema. Cardiomediastinal silhouette is normal. IMPRESSION: 1. Mildly displaced posterior right ninth rib fracture with no acute cardiopulmonary disease. Discharge Plan Discharge Clinical Impression: Closed fracture of rib of right side Patient Disposition: Home Condition: Stable Instructions: Antibiotic Form, Rib Fracture (ED) Patient Language: Tristanian Prescriptions: New hydrocodone-acetaminophen 5-325 mg tablet 1 - 2 tablet PO Q6H PRN (Reason: pain) Qty: 20 0RF Follow-up/Referrals: Trina,Foster Wallace MD [Primary Care Provider] - Stand Alone Forms: Work/School Release IP Time of Disposition: 09:33
--- NOTE | 2025-02-25 09:19 | PC.NURSE ---
PT DECLINED ICE FOR COMFORT
== END 2025-02-25 09:49 | disposition home or self-care (01) ==
PROVIDERS: Emergency Provider Nurse Practitioner; PCP Internal Medicine
DX: S22.31XA Fracture of one rib, right side, initial encounter for closed fracture (principal); W01.0XXA Fall on same level from slipping, tripping and stumbling without subsequent striking against object, initial encounter
CPT/HCPCS: 71101; 99213; G0463

== ENCOUNTER 2025-03-14 09:57 | Outpatient (CLI) | payer OTHER, SELFPAY ==
--- NOTE | ~2025-03-14 | XR_ITS ---
EXAMINATION: XR lg joint inject/asp w image DATE: 03/14/2025 10:53 INDICATION: Adhesive capsulitis of the left shoulder TECHNIQUE: A time-out was performed to verify the patient's name, date of , and procedure to be performed. The procedure including the risks, benefits, and alternatives was discussed with the patient. Risks discussed included bleeding and infection. The patient understood the risks and agreed to proceed. The skin overlying the left glenohumeral joint was prepped and draped in usual sterile fashion. Anesthetic was administered with 1% lidocaine subcutaneously. A 22 G needle was advanced under fluoroscopic guidance into the joint. Injection of 1 mL of Omnipaque 240 confirmed intra-articular position of the needle. Subsequently, injectate consisting of 4 mm of a 3:1 mixture of 1% lidocaine: 80 mg/mL Depo-Medrol for a total dosage of 80 mg Depo-Medrol was instilled. Washout of contrast was seen confirming intra-articular administration. The needle was removed and the entry site was cleaned and dressed. There were no immediate complications. Fluoroscopy exposure time was 0.1 minutes. The total number of images was 2. Total DAP was 0.379 mGycm^2 FINDINGS: Real-time fluoroscopy demonstrates the needle in the left glenohumeral joint. Patient's pain prior to procedure:7/10. Patient's pain following the procedure: 0/10. IMPRESSION: 1. Successful left glenohumeral joint injection of local anesthetic and steroid with decrease in the patient's presenting pain. Reviewed, dictated and finalized at location A.
--- OUTSIDE RECORDS SUMMARY | 2025-03-14 10:22 | XMS_ITS | Clinical Summary ---
Author Organization [facility] A Address [address] [place] [address] Care Team Providers Care Ram Press Operator Name Role Phone Foster Mena MD Primary Care Provider Allergies No known active allergies Medications clobetasoL (TEMOVATE) 0.05 % ointment Apply topically 2 (two) times a day To rash 30 g 3 01/02/20 23 Active linaCLOtide (LINZESS) 290 mcg capsuleIndicatio ns:chronic idiopathic constipation Take 1 capsule (290 mcg total) by mouth daily 30 capsule 11 12/31/19 24 Active Additional Information Patient not taking.Reported on 03/09/2024 atorvastatin (LIPITOR) 20 mg tablet Take 1 tablet (20 mg total) by mouth daily To lower bad cholesterol 90 tablet 3 12/31/19 24 Active varenicline tartrate (CHANTIX GLORIA) 0.5 mg (11)- 1 mg (42) tablet USE DIRECTED FOLLOW PACKAGE DIRECTIONS, TRY TO QUIT SMOKING AFTER 1 WEEK 53 tablet 1 04/28/20 24 Active buPROPion XL (WELLBUTRIN XL) 150 mg 24 hr tablet Take 1 tablet (150 mg total) by mouth every morning 90 tablet 3 08/19/19 23 025 Discontin ued(Patie nt Reported) fexofenadine-pse udoephedrine (ABBE-D) 60-120 mg per 12 hr tablet Take 1 tablet by mouth 2 (two) times a day For drainage 14 tablet 3 08/19/19 23 025 Discontin ued(Patie nt Reported) celecoxib (CeleBREX) 200 mg capsule Take 1 capsule (200 mg total) by mouth daily For back pain 30 capsule 3 01/01/20 23 025 Discontin ued(Patie nt Reported) Active Problems Problem Noted Date Diagnosed Date Chronic midline low back pain without sciatica 0 09/26/2022 DDD (degenerative disc disease), lumbar 09/26/19 Lumbar facet arthropathy 09/25/2022 Encounter for screening colonoscopy 01/07/2022 Overview (01/07/2022): Added automatically from request for surgery [id number] Left sided sciatica 2021 Thoracogenic scoliosis 2021 History of 2019 novel coronavirus disease (COVID -19) 2021 Psoriasis 12/10/2013 Overview (10/31/2016): OTHER PSORIASIS Elevated LDL cholesterol level Assessment & Plan (03/02/2025 2:35 PM CDT): Lab Results Component Value Date CHOL 254 (H) 10/17/2017 CHOL 247 (H) 10/10/2016 Lab Results Component Value Date HDL 54 10/17/2017 HDL 61 10/10/2016 Lab Results Component Value Date LDL 178 (H) 10/17/2017 LDL 170 (H) 10/10/2016 Lab Results Component Value Date TRIG 101 10/17/2017 TRIG 78 10/10/2016 Chronic, stable, not at goal LDL < 100 however needs updated labs Continue statin therapy as Rx: atorvastatin 20mg daily however is not taking it. I personally reviewed the above laboratory data indicating suboptimal cholesterol control Recommend heart-healthy diet. Tobacco abuse Assessment & Plan (03/02/2025 2:35 PM CDT): Chronic problem, at goal of cessation. -Smoking cessation encouraged and risk of tobacco use discussed S/p chantix which helped him quit Resolved Problems Problem Noted Date Diagnosed Date [...] Encounters Date Type Department Care Team Description 03/02/2025 2:00 PM CDT Office Visit [facility] at [address] [place] [phone] Sayda Mackay NP Annual physical exam (Primary Dx); Screening for prostate cancer; Elevated LDL cholesterol level; Tobacco abuse; Need for hepatitis C screening test; Need for hepatitis B screening test 03/02/2025 Telephone [facility] at [address] [place] [phone] Foster Mena MD 02/25/2025 9:05 AM CDT Ancillary Procedure [facility] Outside Films 02/25/2025 Orders Only [facility] Health Information Management [address] [place] [id number] Foster Mena MD from Last 3 Months Immunizations Immunization Administration Dates Next Due Influenza, Quadrivalent, Spl it, Intramuscular 05/05/2016 Influenza, Quadrivalent, Spl it, Preservative Free, Intramuscular 06/06/2020 Influenza, Unspecified 03/02/2025(Deferr ed: Patient Refused),01/02/2025(Deferred: Patient Refused),10/25/2023(Deferred: Patient Refused),08/19/2022(Deferred: Patient Refused),04/26/2021(Deferred: Patient [...] Q uit: 04/05/2019 Smokeless Tobacco: Never Tobacco Cessation:Counseling Given: Not Answered Alcohol Use Standard Drinks/Week [...] points, staff should administer the PHQ-9) 0 03/02/2025 Personal Safety Answer Date Recorded Have you ever been in or are you currently in a harmful physical or emotional relationship or is someone making you feel afraid or unsafe? Denies 07/01/2024 Sex and Gender Information Value Date Recorded Sex Assigned at Not on file Legal Sex Male 11:54 PM PROMOTIONS ASSOCIATE Gender Identity Not on file Sexual Orientation Not on file Obstetrics History Last Filed Vital Signs Vital Sign Reading Time Taken Comments Blood Pressure 102/80 03/02/2025 1:42 PM CDT Pulse 79 03/02/2025 1:42 PM CDT Temperature 36.2 C (97.1 F) 07/01/2024 11:59 AM PROMOTIONS ASSOCIATE Respiratory Rate 20 07/01/2024 1:30 PM PROMOTIONS ASSOCIATE Oxygen Saturation 97% 03/02/2025 1:42 PM CDT Inhaled Oxygen Concentration - - Weight 76.7 kg (169 lb) 03/02/2025 1:42 PM CDT Height 170.2 cm (5' 7) 03/02/2025 1:42 PM CDT Body Mass Index 26.47 03/02/2025 1:42 PM CDT Plan of Treatment Health Maintenance Due Date Last Done Comments Hepatitis C Screening 1975 Prostate Cancer Screening-PSA 1975 Hepatitis B Screening 1992 Covid-19 Vaccine ( season) 2024 11/27/2020, 10/30/2020 Zoster Vaccine (1 of 2) 2024 Influenza Vaccine (#1) 2025 06/06/2020, 2015 Depression Screening 03/02/2026 03/02/2025, 09/26/2022, 09/26/2022, Additional history exists Regular Well Visit/Exam 18-64 03/02/2026 03/02/2025, 12/31/2023, 08/19/2022, Additional history exists DTaP/Tdap/Td Vaccine (2 - Td or Tdap) 06/06/2030 06/06/2020 Colon Cancer Screening-Colonoscopy 03/04/2032 03/04/2022 Pneumococcal vaccine <65 Aged Out No longer eligible based on patient's age to complete this topic Procedures Procedure Name Priority Date/Time Associated Diagnosis Comments XR TRANSFER OF OUTSIDE FILMS Routine 02/25/2025 9:05 AM CDT SCAN - RADIOLOGY/IMAGING 02/25/2025 COLONOSCOPY 03/04/2022 7:10 AM CDT from Last 3 Months or Most Recently Relevant to Health Maintenance Results * XR Outside Reference (02/25/2025 9:05 AM CDT) Narrative [facility] - 03/03/2025 12:43 PM CDT This order has been auto-finalized and does not contain a result. us Not In File Miscellaneous IMG XR PROCEDURES Huma l Result [facility] * SCAN - RADIOLOGY/IMAGING (02/25/2025) Anatomical Region Laterality Modality Other us Foster Mena MD Final R esult * COLONOSCOPY (03/04/2022 7:10 AM CDT) Anatomical Region Laterality Modality Other Narrative Procedure Note Gokul Parson MD - 03/04/2022 7:10 AM CDT [facility] Patient Name: Jag Edwards Procedure Date: 03/04/2022 7:10 AM Date of : 1975 Admit Type: Outpatient Age: 46 Gender: Male Attending MD: Gokul Parson M.D. Room: [facility] END[facility]COPY ROOM 2 Note Status: Finalized Patient [...] scope was passed under direct vision. TheColonoscope [id number] was introduced through the anus and advanced [...] malignant neoplasm of colon CPT copyright 2020 [employer]. All rights reserved. The codes documented in this report are preliminary and upon cloth pattern maker reviewmay be revised to meet current compliance requirements. Recognized by the [employer] for promoting quality in endoscopy Gokul Parson MD ENDOSCOPY PROCEDURES Final Re sult from Last 3 Months or Most Recently Relevant to Health Maintenance Insurance [place] [address] [place] [address] Advance Directives For more information, please contact: [phone] * Full Code (Latest Code Status on File) Date Activated Date Inactivated Comments 07/01/2024 11:46 AM 07/01/2024 5:37 PM * Full Code Date Activated Date Inactivated Comments 03/04/2022 7:05 AM 03/04/2022 1:05 PM * Full Code Date Activated Date Inactivated Comments 03/04/2022 7:05 AM 03/04/2022 7:05 AM Care Teams Ram Press Operator Relationship Specialty Start Date End Date Foster Mena MD PCP - General 10/24/16
== END 2025-03-14 09:58 | disposition home or self-care (01) ==
PROVIDERS: PCP Internal Medicine; Visit Provider Orthopaedic Surgery
DX: M75.02 Adhesive capsulitis of left shoulder (principal); M25.512 Pain in left shoulder
CPT/HCPCS: 20610; 77002; Q9966